=== PATIENT | male | born 1950 | race Caucasian/White ===

== ENCOUNTER 2018-06-14 10:30 | Inpatient (IN) | payer MEDICARE, OTHER ==
[~2018-06-14 10:30] MED LIST: ALBUMIN HUMAN 25% 100 ML INJ; ALBUMIN HUMAN 5% 250 ML INJ; BUPIVACAINE 0.5% (SDV) 30 ML INJ; CA CHLORIDE 10% 10 ML SYRINGE; CEFAZOLIN 1 GM INJ; NA BICARBONATE 8.4% 50 ML SYG
[2018-06-14] MEDS ORDERED: POLYMYXIN/BACITRACIN 1L IRRIG ×2 (13:38)
[2018-06-14] MEDS ORDERED: ROPIVACAINE 0.5 % 30 ML VIAL ×4 (13:39→13:53)
[2018-06-14] MEDS ORDERED: NEOMYC/POLYMYX/BACIT 3.5GM OPH OINT ×2 (13:41)
[2018-06-14] MEDS ORDERED: MIDAZOLAM 1 MG/ML 2 ML INJ ×2 (13:50)
[2018-06-14] MEDS ORDERED: FENTAnyl 50 MCG/ML VIAL ×2 (13:50)
[2018-06-14] MEDS ORDERED: METOCLOPRAMIDE 10 MG INJ ×2 (13:56)
[2018-06-14] MEDS ORDERED: DIPHENHYDRAMINE 25 MG CAP PO ×2 (14:00)
[2018-06-14] MEDS ORDERED: ONDANSETRON 4 MG INJ IV ×2 (14:00)
[2018-06-14] MEDS ORDERED: CEFAZOLIN 1 GM INJ IV ×2 (14:00)
[2018-06-14] MEDS: CEFAZOLIN 1 GM/50 ML (PMX) 50 ML IVPB ×4 (14:45→21:19)
[2018-06-14] MEDS: POLYMYXIN/BACITRACIN 1L IRRIG IRR ×2 (15:14)
[2018-06-14] MEDS ORDERED: NEOMYC/POLYMYX/BACIT 30 GM OINT ×2 (15:24)
[2018-06-14] MEDS ORDERED: LIDOCAINE 2% (SDV) 5 ML INJ ×2 (17:05)
[2018-06-14] MEDS ORDERED: HYDROmorphONE 2 MG/ML SYG ×2 (17:05)
[2018-06-14] MEDS ORDERED: ROCURONIUM 50 MG INJ ×2 (17:05)
[2018-06-14] MEDS ORDERED: PROPOFOL 20 ML ×2 (17:05)
[2018-06-14] MEDS ORDERED: SUCCINYLCHOLINE CHLORIDE 100 MG/5 ML SYG IV ×2 (17:05)
[2018-06-14] MEDS ORDERED: NEOSTIGMINE 3 MG/3 ML SYRINGE ×2 (19:21)
[2018-06-14] MEDS ORDERED: GLYCOPYRROLATE 0.4 MG INJ ×2 (19:21)
[2018-06-14] MEDS ORDERED: CA CHLORIDE 10% 10 ML SYRINGE ×2 (19:45)
[2018-06-14] MEDS ORDERED: LEVALBUTEROL (NEB) 1.25 MG/0.5 ML AMP ×2 (20:20)
[2018-06-14] MEDS ORDERED: ALBUTEROL 0.083% (NEB) 2.5 MG/3 ML AMP ×2 (20:20)
[2018-06-14] MEDS: POLYMYXIN/BACITRACIN 1L IRRIG ×2 (20:20)
[2018-06-14] MEDS: IPRATROPIUM (NEB) 0.5 MG/2.5 ML AMP HHN ×2 (20:54)
[2018-06-14] MEDS ORDERED: LEVALBUTEROL (NEB) 1.25 MG/0.5 ML AMP HHN ×2 (21:00)
[2018-06-14] MEDS ORDERED: ALBUMIN HUMAN 5% 250 ML IV ×2 (21:00)
[2018-06-14] MEDS ORDERED: FENTAnyl 50 MCG/ML VIAL IV ×4 (21:00)
[2018-06-14] MEDS ORDERED: MEPERIDINE 25 MG INJ IV ×2 (21:00)
[2018-06-14] MEDS ORDERED: HYDROmorphONE 1 MG/5 ML IV SYRINGE IV ×4 (21:00)
[2018-06-14] MEDS ORDERED: LABETALOL HCL 20MG INJ IV ×2 (21:00)
[2018-06-14] MEDS ORDERED: hydrALAzine 20 MG INJ IV ×2 (21:00)
[2018-06-14] MEDS ORDERED: DIPHENHYDRAMINE 50 MG INJ IV ×2 (21:00)
[2018-06-14 21:10] LABS: ADD MAN DIFF? NO
[2018-06-14] MEDS: HYDROmorphONE 1 MG/5 ML IV SYRINGE IV ×4 (21:10→21:27)
[2018-06-14] MEDS: ONDANSETRON 4 MG INJ IV ×2 (21:10)
[2018-06-14 21:11] LABS: BASOPHIL # 0.1 10^3/ul (0.0-0.1); BASOPHILS % 0.4 % (0.0-2.0); EOSINOPHILS # 0.1 10^3/ul (0.0-0.5); EOSINOPHILS % 0.8 % (0.0-7.0); HEMATOCRIT 36.2 % (42.0-52.0); HEMOGLOBIN 11.9 g/dl (14.0-18.0); LYMPHOCYTES # 2.2 10^3/ul (0.8-2.9); LYMPHOCYTES % 17.5 % (15.0-51.0); MEAN CORPUSCULAR HEMOGLOBIN 31.3 pg (29.0-33.0); MEAN CORPUSCULAR HGB CONC 32.9 g/dl (32.0-37.0); MEAN CORPUSCULAR VOLUME 95.3 fl (82.0-101.0); MEAN PLATELET VOLUME 9.5 fl (7.4-10.4); MONOCYTE # 0.7 10^3/ul (0.3-0.9); MONOCYTES % 5.8 % (0.0-11.0); NEUTROPHIL # 9.4 10^3/ul (1.6-7.5); PLATELET COUNT 245 10^3/UL (140-415); RED CELL DISTRIBUTION WIDTH 12.9 % (11.5-14.5)
[2018-06-14 21:11] LABS: WHITE BLOOD COUNT 12.5 10^3/ul (4.8-10.8)
[2018-06-14 21:28] LABS: ALANINE AMINOTRANSFERASE 39 IU/L (13-69); ALBUMIN 4.1 g/dl (3.3-4.9); ALBUMIN/GLOBULIN RATIO 1.64; ALKALINE PHOSPHATASE 66 IU/L (42-121); ANION GAP 8 (5-13); ASPARTATE AMINO TRANSFERASE 33 IU/L (15-46); BILIRUBIN,INDIRECT 0.8 mg/dl (0-1.1); BILIRUBIN,TOTAL 0.8 mg/dl (0.2-1.3); BLOOD UREA NITROGEN 18 mg/dl (7-20); CALCIUM 10.8 mg/dl (8.4-10.2); CARBON DIOXIDE 23 mmol/L (21-31); CHLORIDE 113 mmol/L (97-110); CREATININE 1.09 mg/dl (0.61-1.24); Estimated GFR > 60 mL/min (>60); GLUCOSE 124 mg/dl (70-220); POTASSIUM 4.8 mmol/L (3.5-5.1); SODIUM 144 mmol/L (135-144); TOTAL PROTEIN 6.6 g/dl (6.1-8.1)
[2018-06-14 21:37] LABS: INR 1.09; PROTIME 14.2 Sec (11.9-14.9); PT RATIO 1.1
[2018-06-14 21:39] LABS: TROPONIN-I 0.022 ng/ml (0.000-0.120)
[2018-06-14 21:58] LABS: HOLD TRANSMISSIONS 1
[2018-06-14 22:09] LABS: MAGNESIUM 1.6 mg/dl (1.7-2.5)
[2018-06-15] MEDS: morphine 4 MG/ML VIAL IV ×4 (04:24→07:51)
[2018-06-15] MEDS ORDERED: DEXTROSE 50% 50 ML SYRINGE IV ×4 (04:30)
[2018-06-15] MEDS ORDERED: GLUCAGON 1 MG INJ IM ×2 (04:30)
[2018-06-15] MEDS ORDERED: GLUCOSE GEL 15 GRAM TUBE PO ×4 (04:30)
[2018-06-15] MEDS ORDERED: GLUCOSE GEL 15 GRAM TUBE BUCCAL ×2 (04:30)
[2018-06-15] MEDS ORDERED: morphine 2 MG INJ IV ×2 (04:30)
[2018-06-15] MEDS ORDERED: ACETAMINOPHEN 325 MG TAB PO ×2 (04:30)
[2018-06-15] MEDS: CEFAZOLIN 1 GM/50 ML (PMX) 50 ML IVPB ×6 (06:01→21:17)
[2018-06-15 06:14] LABS: TROPONIN-I 0.013 ng/ml (0.000-0.120)
[2018-06-15] MEDS: INSULIN ASPART [NOVOLOG] 3 ML PEN SC ×8 (08:05→21:00)
[2018-06-15] MEDS: ATENOLOL 50 MG TAB PO ×2 (09:09)
[2018-06-15] MEDS: ASPIRIN 81 MG TAB PO ×2 (09:09)
[2018-06-15] MEDS: GABAPENTIN 300 MG CAP PO ×4 (13:05→21:12)
[2018-06-15] MEDS: oxyCODONE 5 MG TAB PO ×4 (15:42→21:12)
[2018-06-15] MEDS: RIVAROXABAN 10 MG TABLET PO ×2 (17:24)
[2018-06-15] MEDS: ATORVASTATIN 10 MG TAB PO ×2 (21:12)
[2018-06-16] MEDS: ACCU-CHEK XX ×2 (02:00)
[2018-06-16] MEDS: oxyCODONE 5 MG TAB PO ×4 (05:43→11:56)
[2018-06-16] MEDS: CEFAZOLIN 1 GM/50 ML (PMX) 50 ML IVPB ×2 (05:43)
[2018-06-16] MEDS: INSULIN ASPART [NOVOLOG] 3 ML PEN SC ×10 (07:49→20:48)
[2018-06-16] MEDS: ASPIRIN 81 MG TAB PO ×2 (08:06)
[2018-06-16] MEDS: GABAPENTIN 300 MG CAP PO ×4 (08:07→12:06)
[2018-06-16] MEDS: ATENOLOL 50 MG TAB PO ×2 (08:07)
[2018-06-16] MEDS: LISINOPRIL 5 MG TAB PO ×4 (11:56→20:36)
[2018-06-16] MEDS: traMADol 50 MG TAB PO ×4 (16:35→22:39)
[2018-06-16] MEDS: AMLODIPINE 10 MG TAB PO ×2 (16:35)
[2018-06-16] MEDS: RIVAROXABAN 10 MG TABLET PO ×2 (16:35)
[2018-06-16] MEDS: INSULIN GLARGINE [LANTus] (100 UNITS/ML) SYG SC ×2 (16:43)
[2018-06-16] MEDS: GABAPENTIN 100 MG CAP PO ×2 (20:31)
[2018-06-16] MEDS: ATORVASTATIN 10 MG TAB PO ×2 (20:31)
[2018-06-17] MEDS: ACCU-CHEK XX ×2 (03:05)
[2018-06-17] MEDS: INSULIN ASPART [NOVOLOG] 3 ML PEN SC ×14 (08:02→21:00)
[2018-06-17] MEDS: INSULIN GLARGINE [LANTus] (100 UNITS/ML) SYG SC ×2 (08:06)
[2018-06-17] MEDS: ATENOLOL 50 MG TAB PO ×2 (08:08)
[2018-06-17] MEDS: AMLODIPINE 10 MG TAB PO ×2 (08:08)
[2018-06-17] MEDS: GABAPENTIN 100 MG CAP PO ×6 (08:08→21:02)
[2018-06-17] MEDS: ASPIRIN 81 MG TAB PO ×2 (08:08)
[2018-06-17] MEDS: LISINOPRIL 5 MG TAB PO ×2 (08:09)
[2018-06-17] MEDS: traMADol 50 MG TAB PO ×4 (08:11→23:55)
[2018-06-17] MEDS: MAGNESIUM HYDROXIDE 30ML CUP PO ×4 (17:19→18:00)
[2018-06-17] MEDS: RIVAROXABAN 10 MG TABLET PO ×2 (17:20)
[2018-06-17] MEDS: BISACODYL (EC) 5 MG TAB PO ×2 (17:20)
[2018-06-17] MEDS ORDERED: MAGNESIUM HYDROXIDE 311 MG TAB PO ×2 (18:00)
[2018-06-17] MEDS: ATORVASTATIN 10 MG TAB PO ×2 (21:01)
[2018-06-17] MEDS: LISINOPRIL 20 MG TAB PO ×2 (21:02)
[2018-06-18] MEDS: HYDROmorphONE 1 MG/ML SYG IV ×2 (01:14)
[2018-06-18] MEDS: ACCU-CHEK XX ×2 (02:04)
[2018-06-18 05:35] LABS: ADD MAN DIFF? NO
[2018-06-18 06:00] LABS: WHITE BLOOD COUNT 12.6 10^3/ul (4.8-10.8)
[2018-06-18 06:00] LABS: ABNORMAL IP MESSAGE 1; BASOPHIL # 0.1 10^3/ul (0.0-0.1); BASOPHILS % 0.6 % (0.0-2.0); EOSINOPHILS # 0.3 10^3/ul (0.0-0.5); EOSINOPHILS % 2.1 % (0.0-7.0); HEMATOCRIT 45.4 % (42.0-52.0); HEMOGLOBIN 15.2 g/dl (14.0-18.0); LYMPHOCYTES # 3.3 10^3/ul (0.8-2.9); LYMPHOCYTES % 26.2 % (15.0-51.0); MEAN CORPUSCULAR HEMOGLOBIN 31.1 pg (29.0-33.0); MEAN CORPUSCULAR HGB CONC 33.5 g/dl (32.0-37.0); MONOCYTE # 1.6 10^3/ul (0.3-0.9); MONOCYTES % 12.4 % (0.0-11.0); NEUTROPHIL # 7.3 10^3/ul (1.6-7.5); PLATELET COUNT 288 10^3/UL (140-415); POSITIVE DIFF @See below; RED BLOOD COUNT 4.88 10^6/ul (4.70-6.10); RED CELL DISTRIBUTION WIDTH 12.2 % (11.5-14.5)
[2018-06-18 07:42] LABS: ALANINE AMINOTRANSFERASE 33 IU/L (13-69); ALBUMIN/GLOBULIN RATIO 1.05; ALKALINE PHOSPHATASE 110 IU/L (42-121); ANION GAP 10 (5-13); ASPARTATE AMINO TRANSFERASE 78 IU/L (15-46); BILIRUBIN,INDIRECT 0.7 mg/dl (0-1.1); BILIRUBIN,TOTAL 0.7 mg/dl (0.2-1.3); BLOOD UREA NITROGEN 21 mg/dl (7-20); CALCIUM 9.6 mg/dl (8.4-10.2); CARBON DIOXIDE 24 mmol/L (21-31); CHLORIDE 103 mmol/L (97-110); CREATININE 0.75 mg/dl (0.61-1.24); Estimated GFR > 60 mL/min (>60); GLUCOSE 137 mg/dl (70-220); POTASSIUM 4.1 mmol/L (3.5-5.1); SODIUM 137 mmol/L (135-144); TOTAL PROTEIN 7.8 g/dl (6.1-8.1)
[2018-06-18] MEDS: INSULIN ASPART [NOVOLOG] 3 ML PEN SC ×8 (08:12→12:22)
[2018-06-18] MEDS: INSULIN GLARGINE [LANTus] (100 UNITS/ML) SYG SC ×2 (08:12)
[2018-06-18] MEDS: ASPIRIN 81 MG TAB PO ×2 (08:16)
[2018-06-18] MEDS: traMADol 50 MG TAB PO ×2 (08:17)
[2018-06-18] MEDS: LISINOPRIL 20 MG TAB PO ×2 (08:17)
[2018-06-18] MEDS: ATENOLOL 50 MG TAB PO ×2 (08:18)
[2018-06-18] MEDS: AMLODIPINE 2.5 MG TAB PO ×2 (08:18)
[2018-06-18] MEDS: GABAPENTIN 100 MG CAP PO ×4 (08:19→12:28)
[2018-06-18] MEDS ORDERED: DOXAZOSIN 2 MG TAB PO ×2 (21:00)
[2018-06-18] MEDS ORDERED: LISINOPRIL 20 MG TAB PO ×2 (21:00)
== END 2018-06-18 15:05 | disposition home or self-care (01) | DRG 983 ==
LOC: SDS 10:30 → REC 13:58 → 6WM 20:45
PROVIDERS: Orthopaedic Surgery
PROC: 0SGH07Z Fusion of Right Tarsal Joint with Autologous Tissue Substitute, Open Approach (ICD-10-PCS; principal; 2018-06-14 13:00)
PROC: 0SGH07Z Fusion of Right Tarsal Joint with Autologous Tissue Substitute, Open Approach (ICD-10-PCS; 2018-06-14 13:00)
PROC: 0SGH07Z Fusion of Right Tarsal Joint with Autologous Tissue Substitute, Open Approach (ICD-10-PCS; 2018-06-14 13:00)
PROC: 0SGH0KZ Fusion of Right Tarsal Joint with Nonautologous Tissue Substitute, Open Approach (ICD-10-PCS; 2018-06-14 13:00)
PROC: 0SGH0KZ Fusion of Right Tarsal Joint with Nonautologous Tissue Substitute, Open Approach (ICD-10-PCS; 2018-06-14 13:00)
PROC: 0SGH0KZ Fusion of Right Tarsal Joint with Nonautologous Tissue Substitute, Open Approach (ICD-10-PCS; 2018-06-14 13:00)
DX: A52.16 Charcot's arthropathy (tabetic) (principal); S93.324A Dislocation of tarsometatarsal joint of right foot, initial encounter (principal); I10 Essential (primary) hypertension; E11.9 Type 2 diabetes mellitus without complications; E78.5 Hyperlipidemia, unspecified; Z79.82 Long term (current) use of aspirin; Z79.4 Long term (current) use of insulin; N40.0 Benign prostatic hyperplasia without lower urinary tract symptoms
CPT/HCPCS: 71045; 73630; 80053; 82306; 82962; 83735; 84484; 85025; 85610; 85730; 93005; 93306; 94664; 97110; 97116; 97161; 97530

== ENCOUNTER 2018-07-12 15:13 | Emergency (ER) | payer MEDICARE, OTHER | END 2018-07-12 16:47 | disposition left against medical advice (07) | LOC: E/R 16:47 | DX: Z53.21 Procedure and treatment not carried out due to patient leaving prior to being seen by health care provider (principal) ==

== ENCOUNTER 2018-07-12 16:09 | Inpatient (IN) | payer MEDICARE, OTHER ==
[2018-07-12 17:28] LABS: ADD MAN DIFF? NO
[2018-07-12 17:29] LABS: ABNORMAL IP MESSAGE 1; BASOPHIL # 0.1 10^3/ul (0.0-0.1); BASOPHILS % 0.5 % (0.0-2.0); EOSINOPHILS # 0.4 10^3/ul (0.0-0.5); EOSINOPHILS % 3.2 % (0.0-7.0); HEMATOCRIT 41.6 % (42.0-52.0); HEMOGLOBIN 13.9 g/dl (14.0-18.0); LYMPHOCYTES # 2.9 10^3/ul (0.8-2.9); LYMPHOCYTES % 23.7 % (15.0-51.0); MEAN CORPUSCULAR HEMOGLOBIN 30.6 pg (29.0-33.0); MEAN CORPUSCULAR HGB CONC 33.4 g/dl (32.0-37.0); MEAN CORPUSCULAR VOLUME 91.6 fl (82.0-101.0); MEAN PLATELET VOLUME 10.2 fl (7.4-10.4); MONOCYTE # 1.6 10^3/ul (0.3-0.9); MONOCYTES % 12.7 % (0.0-11.0); NEUTROPHIL # 7.4 10^3/ul (1.6-7.5); NEUTROPHILS % 59.5 % (39.0-77.0); PLATELET COUNT 350 10^3/UL (140-415); POSITIVE DIFF @See below; RED BLOOD COUNT 4.54 10^6/ul (4.70-6.10); RED CELL DISTRIBUTION WIDTH 12.5 % (11.5-14.5)
[2018-07-12 17:35] LABS: WHITE BLOOD COUNT 12.4 10^3/ul (4.8-10.8)
[2018-07-12 17:48] LABS: ANION GAP 12 (5-13); CALCIUM 10.2 mg/dl (8.4-10.2); CARBON DIOXIDE 24 mmol/L (21-31); CHLORIDE 102 mmol/L (97-110); CREATININE 1.21 mg/dl (0.61-1.24); Estimated GFR > 60 mL/min (>60); GLUCOSE 94 mg/dl (70-220); POTASSIUM 4.6 mmol/L (3.5-5.1); SODIUM 138 mmol/L (135-144)
[2018-07-12 17:49] LABS: INR 1.04; PROTIME 13.7 Sec (11.9-14.9); PT RATIO 1.1
[2018-07-12 17:53] LABS: PARTIAL THROMBOPLASTIN TIME 38.8 Sec (23.0-35.0)
[2018-07-12] MEDS ORDERED: BACITRACIN 50000 UNITS INJ (17:57)
[2018-07-12] MEDS ORDERED: POLYMYXIN B 500000 UNIT INJ (17:59)
[2018-07-12 18:11] LABS: BLOOD UREA NITROGEN 29 mg/dl (7-20)
[2018-07-12] MEDS ORDERED: POLYMYXIN/BACITRACIN 1L IRRIG (18:16)
[2018-07-12] MEDS ORDERED: ROPIVACAINE 0.5 % 30 ML VIAL (18:16)
[2018-07-12] MEDS ORDERED: BACITRACIN/POLYMYXIN 28.35 GM OINT TOP (18:17)
[2018-07-12] MEDS ORDERED: MEPERIDINE 25 MG INJ IV (18:30)
[2018-07-12] MEDS ORDERED: FENTAnyl 50 MCG/ML VIAL IV (18:30)
[2018-07-12] MEDS ORDERED: DIPHENHYDRAMINE 50 MG INJ IV (18:30)
[2018-07-12] MEDS ORDERED: ONDANSETRON 4 MG INJ IV ×3 (18:30→19:00)
[2018-07-12] MEDS ORDERED: PROCHLORPERAZINE 10 MG INJ IV (18:30)
[2018-07-12] MEDS ORDERED: HYDROmorphONE 1 MG/5 ML IV SYRINGE IV ×2 (18:30)
[2018-07-12] MEDS ORDERED: OXYCODONE/ACETAMINOPHEN (5/325) TAB PO (18:30)
[2018-07-12 18:34] LABS: C-REACTIVE PROTEIN 1.1 mg/dl (0.0-0.9)
[2018-07-12 18:35] LABS: HEMOGLOBIN A1C 7.7 % (0-5.9)
[2018-07-12] MEDS ORDERED: MIDAZOLAM 1 MG/ML 2 ML INJ (18:42)
[2018-07-12] MEDS ORDERED: PROPOFOL 20 ML (18:42)
[2018-07-12] MEDS ORDERED: LIDOCAINE 2% (SDV) 5 ML INJ (18:42)
[2018-07-12] MEDS ORDERED: FENTAnyl 50 MCG/ML VIAL (18:56)
[2018-07-12] MEDS ORDERED: DIPHENHYDRAMINE 25 MG CAP PO (19:00)
[2018-07-12] MEDS ORDERED: NACL 0.9% 3 ML SYG IV (19:00)
[2018-07-12] MEDS ORDERED: PHENYLephrine (100 MCG/ML) 5ML SYG (19:10)
[2018-07-12] MEDS ORDERED: VANCOMYCIN 1 GM (PMX) 250 ML (19:11)
[2018-07-12] MEDS ORDERED: VANCOMYCIN IV PER PHARMACY XX (19:30)
[2018-07-12 19:57] LABS: ALANINE AMINOTRANSFERASE 36 IU/L (13-69); ALBUMIN 4.5 g/dl (3.3-4.9); ALKALINE PHOSPHATASE 110 IU/L (42-121); ASPARTATE AMINO TRANSFERASE 52 IU/L (15-46); BILIRUBIN,INDIRECT 0.7 mg/dl (0-1.1); BILIRUBIN,TOTAL 0.7 mg/dl (0.2-1.3); CHOL/HDL RATIO 4.3 RATIO; HDL CHOLESTEROL 39 mg/dl (30-78); LDL CHOLESTEROL,CALCULATED 116 mg/dl; TRIGLYCERIDES 80 mg/dl (0-149)
[2018-07-12 19:57] LABS: CHOLESTEROL 171 mg/dl (100-200)
[2018-07-12] MEDS ORDERED: EPHEDrine SULFATE 50 MG/5 ML SYG (20:15)
[2018-07-12] MEDS ORDERED: VASOPRESSIN 20 UNITS INJ (20:28)
[2018-07-12] MEDS ORDERED: ALBUTEROL 0.083% (NEB) 2.5 MG/3 ML AMP (20:51)
[2018-07-12] MEDS: DOXAZOSIN 2 MG TAB PO (21:00)
[2018-07-12] MEDS ORDERED: ALBUTEROL 0.083% (NEB) 2.5 MG/3 ML AMP HHN (21:00)
[2018-07-12] MEDS ORDERED: NON-FORMULARY/PATIENT OWN MED (Pravastatin Sodium* 10 MG) PO (21:00)
[2018-07-12] MEDS: INSULIN ASPART [NOVOLOG] 3 ML PEN SC (21:00)
[2018-07-12] MEDS: HYDROmorphONE 1 MG/5 ML IV SYRINGE IV (21:34)
[2018-07-12] MEDS: oxyCODONE 5 MG TAB PO (22:32)
[2018-07-12] MEDS ORDERED: GLUCOSE GEL 15 GRAM TUBE BUCCAL (23:00)
[2018-07-12] MEDS ORDERED: GLUCAGON 1 MG INJ IM (23:00)
[2018-07-12] MEDS ORDERED: GLUCOSE GEL 15 GRAM TUBE PO ×2 (23:00)
[2018-07-12] MEDS ORDERED: DEXTROSE 50% 50 ML SYRINGE IV ×2 (23:00)
[2018-07-13] MEDS: ATORVASTATIN 10 MG TAB PO ×2 (00:31→21:24)
[2018-07-13] MEDS: traZODone 100 MG TAB PO ×2 (00:31→21:25)
[2018-07-13] MEDS: GABAPENTIN 100 MG CAP PO ×4 (00:31→21:25)
[2018-07-13] MEDS: ACCU-CHEK XX (02:00)
[2018-07-13] MEDS ORDERED: LORAZEPAM 2 MG INJ IV (04:00)
[2018-07-13 05:32] LABS: HEMATOCRIT 36.1 % (42.0-52.0); HEMOGLOBIN 12.3 g/dl (14.0-18.0); MEAN CORPUSCULAR HEMOGLOBIN 31.3 pg (29.0-33.0); MEAN CORPUSCULAR HGB CONC 34.1 g/dl (32.0-37.0); MEAN CORPUSCULAR VOLUME 91.9 fl (82.0-101.0); MEAN PLATELET VOLUME 10.2 fl (7.4-10.4); PLATELET COUNT 256 10^3/UL (140-415); RED BLOOD COUNT 3.93 10^6/ul (4.70-6.10); RED CELL DISTRIBUTION WIDTH 12.7 % (11.5-14.5)
[2018-07-13 05:38] LABS: ADD MAN DIFF? YES
[2018-07-13 05:52] LABS: ALANINE AMINOTRANSFERASE 30 IU/L (13-69); ALBUMIN 3.5 g/dl (3.3-4.9); ALBUMIN/GLOBULIN RATIO 1.25; ALKALINE PHOSPHATASE 82 IU/L (42-121); ANION GAP 8 (5-13); ASPARTATE AMINO TRANSFERASE 27 IU/L (15-46); BILIRUBIN,INDIRECT 0.7 mg/dl (0-1.1); BILIRUBIN,TOTAL 0.7 mg/dl (0.2-1.3); BLOOD UREA NITROGEN 24 mg/dl (7-20); CALCIUM 9.3 mg/dl (8.4-10.2); CARBON DIOXIDE 25 mmol/L (21-31); CHLORIDE 104 mmol/L (97-110); CREATININE 1.14 mg/dl (0.61-1.24); Estimated GFR > 60 mL/min (>60); GLUCOSE 164 mg/dl (70-220); MAGNESIUM 1.8 mg/dl (1.7-2.5); PHOSPHORUS 3.8 mg/dl (2.5-4.9); POTASSIUM 4.4 mmol/L (3.5-5.1); SODIUM 137 mmol/L (135-144); TOTAL PROTEIN 6.3 g/dl (6.1-8.1)
[2018-07-13] MEDS: VANCOMYCIN 1.25 GM in SOD CHLORIDE 0.9% 250 ML IVPB ×2 (05:55→18:14)
[2018-07-13 05:59] LABS: ETHANOL < 10.0 mg/dl (0-0)
[2018-07-13 06:59] LABS: HEMOGLOBIN A1C 7.5 % (0-5.9)
[2018-07-13] MEDS: INSULIN ASPART [NOVOLOG] 3 ML PEN SC ×4 (07:50→21:34)
[2018-07-13 08:09] LABS: EOSINOPHILS % (M) 7 % (0-7); LYMPHOCYTES #M 2.1 10^3/ul (0.8-2.9); LYMPHOCYTES % (M) 27 % (15-51); MONOCYTES % (M) 13 % (0-11); PLATELET ESTIMATE NORMAL; REACTIVE LYMPHOCYTES #M 0.1 10^3/ul (0.0-0.0); REACTIVE LYMPHOCYTES% (M) 2 % (0-0); SEGMENTED NEUTROPHILS (M) % 51 % (39-77); SMUDGE%M 2 % (0-0)
[2018-07-13] MEDS: CHOLECALCIFEROL 1,000 UNIT TAB PO (09:24)
[2018-07-13] MEDS: ATENOLOL 50 MG TAB PO (09:25)
[2018-07-13] MEDS: LISINOPRIL 20 MG TAB PO (09:25)
[2018-07-13] MEDS: INSULIN ASP PROT/ASPART (70/30) PEN SC ×3 (09:32→18:23)
[2018-07-13] MEDS: ASCORBIC ACID 500 MG TAB PO (09:58)
[2018-07-13] MEDS: MULTIVIT/CA CARB/B CMPLX/FA TAB PO (09:58)
[2018-07-13] MEDS: morphine 2 MG INJ IV (09:59)
[2018-07-13] MEDS: MULTIVITAMINS 10 ML, THIAMINE 100 MG, FOLIC ACID 1 MG in SOD CHLORIDE 0.9% 1,000 ML IVPB (12:42)
[2018-07-13] MEDS: CEFEPIME 1GM/50 ML (PMX) 50 ML IVPB ×2 (15:18→21:24)
[2018-07-13] MEDS ORDERED: RIVAROXABAN 10 MG TABLET PO (17:55)
[2018-07-13] MEDS: RIVAROXABAN 10 MG TABLET PO (18:14)
[2018-07-13] MEDS: DOXAZOSIN 2 MG TAB PO (21:24)
[2018-07-14] MEDS: ACCU-CHEK XX (02:00)
[2018-07-14] MEDS: VANCOMYCIN 1.25 GM in SOD CHLORIDE 0.9% 250 ML IVPB ×2 (05:39→18:34)
[2018-07-14] MEDS: ATENOLOL 50 MG TAB PO (08:46)
[2018-07-14] MEDS: GABAPENTIN 100 MG CAP PO ×3 (08:46→20:54)
[2018-07-14] MEDS: oxyCODONE 5 MG TAB PO ×6 (08:47→23:26)
[2018-07-14] MEDS: CHOLECALCIFEROL 1,000 UNIT TAB PO (08:47)
[2018-07-14] MEDS: LISINOPRIL 20 MG TAB PO (08:47)
[2018-07-14] MEDS: ASCORBIC ACID 500 MG TAB PO (08:47)
[2018-07-14] MEDS: INSULIN ASPART [NOVOLOG] 3 ML PEN SC ×4 (08:52→20:59)
[2018-07-14] MEDS: INSULIN ASP PROT/ASPART (70/30) PEN SC ×2 (08:56→17:42)
[2018-07-14] MEDS: CEFEPIME 1GM/50 ML (PMX) 50 ML IVPB ×2 (09:33→22:09)
[2018-07-14] MEDS: MULTIVIT/CA CARB/B CMPLX/FA TAB PO (09:33)
[2018-07-14] MEDS: LEVOFLOXACIN 750 MG TABLET PO (16:27)
[2018-07-14] MEDS: RIVAROXABAN 10 MG TABLET PO (17:47)
[2018-07-14 17:56] LABS: VANCOMYCIN,TROUGH 8.8 ug/ml (10.0-20.0)
[2018-07-14] MEDS: morphine 2 MG INJ IV (20:51)
[2018-07-14] MEDS: DOXAZOSIN 2 MG TAB PO (20:53)
[2018-07-14] MEDS: ATORVASTATIN 10 MG TAB PO (20:53)
[2018-07-14] MEDS: traZODone 100 MG TAB PO (20:59)
[2018-07-15] MEDS: ACCU-CHEK XX (01:00)
[2018-07-15] MEDS: VANCOMYCIN 1.5 GM in SOD CHLORIDE 0.9% 250 ML IVPB ×2 (04:14→16:28)
[2018-07-15 05:06] LABS: ADD MAN DIFF? NO
[2018-07-15 05:15] LABS: WHITE BLOOD COUNT 8.6 10^3/ul (4.8-10.8)
[2018-07-15 05:15] LABS: BASOPHIL # 0.1 10^3/ul (0.0-0.1); BASOPHILS % 0.8 % (0.0-2.0); EOSINOPHILS # 0.5 10^3/ul (0.0-0.5); EOSINOPHILS % 5.5 % (0.0-7.0); HEMATOCRIT 41.1 % (42.0-52.0); HEMOGLOBIN 13.7 g/dl (14.0-18.0); LYMPHOCYTES # 3.1 10^3/ul (0.8-2.9); LYMPHOCYTES % 35.7 % (15.0-51.0); MEAN CORPUSCULAR HEMOGLOBIN 30.6 pg (29.0-33.0); MEAN CORPUSCULAR HGB CONC 33.3 g/dl (32.0-37.0); MEAN CORPUSCULAR VOLUME 91.9 fl (82.0-101.0); MONOCYTES % 11.8 % (0.0-11.0); NEUTROPHIL # 3.9 10^3/ul (1.6-7.5); NEUTROPHILS % 45.9 % (39.0-77.0); PLATELET COUNT 274 10^3/UL (140-415); RED BLOOD COUNT 4.47 10^6/ul (4.70-6.10); RED CELL DISTRIBUTION WIDTH 12.5 % (11.5-14.5)
[2018-07-15] MEDS: LEVOFLOXACIN 750 MG TABLET PO (06:01)
[2018-07-15 06:08] LABS: ANION GAP 10 (5-13); BLOOD UREA NITROGEN 20 mg/dl (7-20); CALCIUM 9.9 mg/dl (8.4-10.2); CARBON DIOXIDE 28 mmol/L (21-31); CHLORIDE 101 mmol/L (97-110); CREATININE 0.85 mg/dl (0.61-1.24); Estimated GFR > 60 mL/min (>60); GLUCOSE 146 mg/dl (70-220); MAGNESIUM 1.7 mg/dl (1.7-2.5); PHOSPHORUS 3.6 mg/dl (2.5-4.9); POTASSIUM 4.5 mmol/L (3.5-5.1); SODIUM 139 mmol/L (135-144)
[2018-07-15] MEDS: ASCORBIC ACID 500 MG TAB PO (08:50)
[2018-07-15] MEDS: MULTIVIT/CA CARB/B CMPLX/FA TAB PO (08:50)
[2018-07-15] MEDS: CEFEPIME 1GM/50 ML (PMX) 50 ML IVPB ×2 (08:50→20:39)
[2018-07-15] MEDS: CHOLECALCIFEROL 1,000 UNIT TAB PO (08:51)
[2018-07-15] MEDS: GABAPENTIN 100 MG CAP PO ×3 (08:51→20:38)
[2018-07-15] MEDS: LISINOPRIL 20 MG TAB PO (08:51)
[2018-07-15] MEDS: ATENOLOL 50 MG TAB PO (08:51)
[2018-07-15] MEDS: INSULIN ASPART [NOVOLOG] 3 ML PEN SC ×4 (08:53→20:38)
[2018-07-15] MEDS: INSULIN ASP PROT/ASPART (70/30) PEN SC ×2 (08:53→17:49)
[2018-07-15] MEDS: oxyCODONE 5 MG TAB PO ×3 (12:41→22:23)
[2018-07-15] MEDS ORDERED: DOCUSATE SODIUM 100 MG CAP PO (14:30)
[2018-07-15] MEDS ORDERED: MAGNESIUM HYDROXIDE 30ML CUP PO (16:00)
[2018-07-15] MEDS: RIVAROXABAN 10 MG TABLET PO (17:54)
[2018-07-15] MEDS: ATORVASTATIN 10 MG TAB PO (20:37)
[2018-07-15] MEDS: traZODone 100 MG TAB PO (20:37)
[2018-07-15] MEDS: DOXAZOSIN 2 MG TAB PO (20:37)
[2018-07-15] MEDS: DOCUSATE SODIUM 100 MG CAP PO (20:38)
[2018-07-16] MEDS: ACCU-CHEK XX (01:21)
[2018-07-16] MEDS: VANCOMYCIN 1.5 GM in SOD CHLORIDE 0.9% 250 ML IVPB (04:22)
[2018-07-16] MEDS: LEVOFLOXACIN 750 MG TABLET PO (06:05)
[2018-07-16] MEDS: oxyCODONE 5 MG TAB PO ×3 (06:09→16:53)
[2018-07-16] MEDS: INSULIN ASPART [NOVOLOG] 3 ML PEN SC ×4 (07:50→21:00)
[2018-07-16] MEDS: INSULIN ASP PROT/ASPART (70/30) PEN SC ×2 (08:23→17:56)
[2018-07-16] MEDS: CHOLECALCIFEROL 1,000 UNIT TAB PO (08:25)
[2018-07-16] MEDS: ASCORBIC ACID 500 MG TAB PO (08:25)
[2018-07-16] MEDS: MULTIVIT/CA CARB/B CMPLX/FA TAB PO (08:25)
[2018-07-16] MEDS: DOCUSATE SODIUM 100 MG CAP PO ×2 (08:25→21:06)
[2018-07-16] MEDS: ATENOLOL 50 MG TAB PO (08:26)
[2018-07-16] MEDS: GABAPENTIN 100 MG CAP PO ×3 (08:26→21:06)
[2018-07-16] MEDS: LISINOPRIL 20 MG TAB PO (08:27)
[2018-07-16] MEDS: CEFEPIME 1GM/50 ML (PMX) 50 ML IVPB (09:49)
[2018-07-16 14:36] LABS: TRANSFERRIN 274 mg/dL (188-341)
[2018-07-16] MEDS: RIVAROXABAN 10 MG TABLET PO (18:01)
[2018-07-16] MEDS: ATORVASTATIN 10 MG TAB PO (21:06)
[2018-07-16] MEDS: DOXAZOSIN 2 MG TAB PO (21:06)
[2018-07-16] MEDS: traZODone 100 MG TAB PO (21:06)
[2018-07-16] MEDS: morphine LIQ (10 MG/5 ML) CUP PO (21:12)
[2018-07-17] MEDS: ACCU-CHEK XX (01:16)
[2018-07-17] MEDS: morphine LIQ (10 MG/5 ML) CUP PO (04:46)
[2018-07-17 05:12] LABS: ADD MAN DIFF? NO
[2018-07-17 05:17] LABS: WHITE BLOOD COUNT 8.8 10^3/ul (4.8-10.8)
[2018-07-17 05:17] LABS: BASOPHIL # 0.1 10^3/ul (0.0-0.1); BASOPHILS % 0.8 % (0.0-2.0); EOSINOPHILS # 0.4 10^3/ul (0.0-0.5); HEMATOCRIT 40.2 % (42.0-52.0); HEMOGLOBIN 13.7 g/dl (14.0-18.0); LYMPHOCYTES % 34.6 % (15.0-51.0); MEAN CORPUSCULAR HEMOGLOBIN 30.9 pg (29.0-33.0); MEAN CORPUSCULAR HGB CONC 34.1 g/dl (32.0-37.0); MEAN CORPUSCULAR VOLUME 90.7 fl (82.0-101.0); MEAN PLATELET VOLUME 10.1 fl (7.4-10.4); MONOCYTE # 0.9 10^3/ul (0.3-0.9); MONOCYTES % 10.5 % (0.0-11.0); NEUTROPHIL # 4.3 10^3/ul (1.6-7.5); NEUTROPHILS % 48.6 % (39.0-77.0); PLATELET COUNT 277 10^3/UL (140-415); RED BLOOD COUNT 4.43 10^6/ul (4.70-6.10); RED CELL DISTRIBUTION WIDTH 12.2 % (11.5-14.5)
[2018-07-17 05:42] LABS: ANION GAP 10 (5-13); BLOOD UREA NITROGEN 21 mg/dl (7-20); CALCIUM 9.7 mg/dl (8.4-10.2); CARBON DIOXIDE 27 mmol/L (21-31); CHLORIDE 104 mmol/L (97-110); CREATININE 0.91 mg/dl (0.61-1.24); Estimated GFR > 60 mL/min (>60); GLUCOSE 149 mg/dl (70-220); MAGNESIUM 1.7 mg/dl (1.7-2.5); PHOSPHORUS 4.1 mg/dl (2.5-4.9); POTASSIUM 4.2 mmol/L (3.5-5.1); SODIUM 141 mmol/L (135-144)
[2018-07-17] MEDS: LEVOFLOXACIN 750 MG TABLET PO (05:59)
[2018-07-17] MEDS: INSULIN ASP PROT/ASPART (70/30) PEN SC ×2 (08:45→17:25)
[2018-07-17] MEDS: INSULIN ASPART [NOVOLOG] 3 ML PEN SC ×4 (08:46→21:00)
[2018-07-17] MEDS: CHOLECALCIFEROL 1,000 UNIT TAB PO (08:47)
[2018-07-17] MEDS: GABAPENTIN 100 MG CAP PO ×3 (08:48→23:22)
[2018-07-17] MEDS: ASCORBIC ACID 500 MG TAB PO (08:48)
[2018-07-17] MEDS: LISINOPRIL 20 MG TAB PO (08:48)
[2018-07-17] MEDS: ATENOLOL 50 MG TAB PO (08:48)
[2018-07-17] MEDS: MULTIVIT/CA CARB/B CMPLX/FA TAB PO (08:48)
[2018-07-17] MEDS: DOCUSATE SODIUM 100 MG CAP PO ×2 (08:49→23:22)
[2018-07-17] MEDS: oxyCODONE 5 MG TAB PO ×4 (10:03→23:21)
[2018-07-17] MEDS ORDERED: PHENYLephrine (100 MCG/ML) 5ML SYG IV (13:07)
[2018-07-17] MEDS ORDERED: LIDOCAINE 1% (MPF) 5 ML VIAL INJ (13:07)
[2018-07-17] MEDS: SOD CHLORIDE 0.45% 1,000 ML IV (13:17)
[2018-07-17] MEDS: RIVAROXABAN 10 MG TABLET PO (15:16)
[2018-07-17] MEDS ORDERED: BACITRACIN 50000 UNITS INJ (18:12)
[2018-07-17] MEDS ORDERED: POLYMYXIN B 500000 UNIT INJ ×2 (18:14→19:32)
[2018-07-17] MEDS ORDERED: ONDANSETRON 4 MG INJ IV (19:00)
[2018-07-17] MEDS ORDERED: HYDROmorphONE 1 MG/5 ML IV SYRINGE IV ×2 (19:00)
[2018-07-17] MEDS ORDERED: MEPERIDINE 25 MG INJ IV (19:00)
[2018-07-17] MEDS ORDERED: EPHEDrine SULFATE 50 MG/5 ML SYG IV (19:00)
[2018-07-17] MEDS ORDERED: hydrALAzine 20 MG INJ IV (19:00)
[2018-07-17] MEDS ORDERED: LABETALOL HCL 20MG INJ IV (19:00)
[2018-07-17] MEDS ORDERED: DIPHENHYDRAMINE 50 MG INJ IV (19:00)
[2018-07-17] MEDS ORDERED: ONDANSETRON 4 MG INJ (19:08)
[2018-07-17] MEDS ORDERED: FENTAnyl 50 MCG/ML VIAL (19:08)
[2018-07-17] MEDS ORDERED: PROPOFOL 20 ML (19:08)
[2018-07-17] MEDS ORDERED: METOCLOPRAMIDE 10 MG INJ (19:09)
[2018-07-17] MEDS ORDERED: CEFAZOLIN 1 GM INJ (20:40)
[2018-07-17] MEDS ORDERED: EPHEDrine 50 MG INJ (20:41)
[2018-07-17] MEDS: POLYMYXIN/BACITRACIN 1L IRRIG IRR (21:21)
[2018-07-17] MEDS: HYDROmorphONE 1 MG/5 ML IV SYRINGE IV (22:32)
[2018-07-17] MEDS: ATORVASTATIN 10 MG TAB PO (23:21)
[2018-07-17] MEDS: traZODone 100 MG TAB PO (23:22)
[2018-07-17] MEDS: DOXAZOSIN 2 MG TAB PO (23:22)
[2018-07-18] MEDS: ACCU-CHEK XX (01:01)
[2018-07-18] MEDS: LEVOFLOXACIN 750 MG TABLET PO (05:30)
[2018-07-18] MEDS: INSULIN ASP PROT/ASPART (70/30) PEN SC ×2 (08:46→17:51)
[2018-07-18] MEDS: INSULIN ASPART [NOVOLOG] 3 ML PEN SC ×4 (08:47→20:36)
[2018-07-18] MEDS: GABAPENTIN 100 MG CAP PO ×3 (08:50→20:37)
[2018-07-18] MEDS: ASCORBIC ACID 500 MG TAB PO (08:50)
[2018-07-18] MEDS: DOCUSATE SODIUM 100 MG CAP PO ×2 (08:50→20:37)
[2018-07-18] MEDS: CHOLECALCIFEROL 1,000 UNIT TAB PO (08:50)
[2018-07-18] MEDS: ATENOLOL 50 MG TAB PO (08:54)
[2018-07-18] MEDS: LISINOPRIL 20 MG TAB PO (08:55)
[2018-07-18] MEDS: MULTIVIT/CA CARB/B CMPLX/FA TAB PO (09:00)
[2018-07-18] MEDS: oxyCODONE 5 MG TAB PO ×4 (09:28→20:37)
[2018-07-18 12:22] LABS: ADD MAN DIFF? NO
[2018-07-18 12:30] LABS: BASOPHIL # 0.1 10^3/ul (0.0-0.1); BASOPHILS % 0.7 % (0.0-2.0); EOSINOPHILS # 0.2 10^3/ul (0.0-0.5); EOSINOPHILS % 2.6 % (0.0-7.0); HEMATOCRIT 39.1 % (42.0-52.0); HEMOGLOBIN 13.1 g/dl (14.0-18.0); LYMPHOCYTES # 2.3 10^3/ul (0.8-2.9); MEAN CORPUSCULAR HEMOGLOBIN 30.5 pg (29.0-33.0); MEAN CORPUSCULAR HGB CONC 33.5 g/dl (32.0-37.0); MEAN CORPUSCULAR VOLUME 90.9 fl (82.0-101.0); MEAN PLATELET VOLUME 10.2 fl (7.4-10.4); MONOCYTE # 0.9 10^3/ul (0.3-0.9); MONOCYTES % 10.9 % (0.0-11.0); NEUTROPHILS % 58.4 % (39.0-77.0); PLATELET COUNT 280 10^3/UL (140-415); RED CELL DISTRIBUTION WIDTH 12.1 % (11.5-14.5)
[2018-07-18 12:30] LABS: WHITE BLOOD COUNT 8.6 10^3/ul (4.8-10.8)
[2018-07-18 12:42] LABS: ANION GAP 10 (5-13); BLOOD UREA NITROGEN 18 mg/dl (7-20); CALCIUM 9.5 mg/dl (8.4-10.2); CARBON DIOXIDE 27 mmol/L (21-31); CHLORIDE 103 mmol/L (97-110); CREATININE 0.83 mg/dl (0.61-1.24); Estimated GFR > 60 mL/min (>60); GLUCOSE 183 mg/dl (70-220); POTASSIUM 4.2 mmol/L (3.5-5.1); SODIUM 140 mmol/L (135-144)
[2018-07-18] MEDS: RIVAROXABAN 10 MG TABLET PO (17:43)
[2018-07-18] MEDS: ATORVASTATIN 10 MG TAB PO (20:37)
[2018-07-18] MEDS: traZODone 100 MG TAB PO (20:37)
[2018-07-18] MEDS: DOXAZOSIN 2 MG TAB PO (20:37)
[2018-07-19] MEDS: morphine LIQ (10 MG/5 ML) CUP PO ×3 (00:17→21:41)
[2018-07-19] MEDS: ACCU-CHEK XX ×2 (01:41→22:28)
[2018-07-19] MEDS: oxyCODONE 5 MG TAB PO ×4 (04:05→17:45)
[2018-07-19 05:30] LABS: ADD MAN DIFF? NO
[2018-07-19 05:36] LABS: BASOPHIL # 0.1 10^3/ul (0.0-0.1); BASOPHILS % 0.7 % (0.0-2.0); EOSINOPHILS # 0.4 10^3/ul (0.0-0.5); EOSINOPHILS % 4.4 % (0.0-7.0); HEMATOCRIT 36.9 % (42.0-52.0); HEMOGLOBIN 12.4 g/dl (14.0-18.0); LYMPHOCYTES % 36.8 % (15.0-51.0); MEAN CORPUSCULAR HEMOGLOBIN 30.5 pg (29.0-33.0); MEAN CORPUSCULAR HGB CONC 33.6 g/dl (32.0-37.0); MEAN CORPUSCULAR VOLUME 90.9 fl (82.0-101.0); MEAN PLATELET VOLUME 10.4 fl (7.4-10.4); MONOCYTE # 0.9 10^3/ul (0.3-0.9); MONOCYTES % 11.3 % (0.0-11.0); NEUTROPHIL # 3.8 10^3/ul (1.6-7.5); NEUTROPHILS % 46.4 % (39.0-77.0); PLATELET COUNT 263 10^3/UL (140-415); RED BLOOD COUNT 4.06 10^6/ul (4.70-6.10); RED CELL DISTRIBUTION WIDTH 11.9 % (11.5-14.5)
[2018-07-19 05:36] LABS: WHITE BLOOD COUNT 8.3 10^3/ul (4.8-10.8)
[2018-07-19] MEDS: LEVOFLOXACIN 750 MG TABLET PO (05:44)
[2018-07-19 06:08] LABS: ANION GAP 8 (5-13); BLOOD UREA NITROGEN 25 mg/dl (7-20); CALCIUM 9.1 mg/dl (8.4-10.2); CARBON DIOXIDE 28 mmol/L (21-31); CHLORIDE 103 mmol/L (97-110); CREATININE 0.91 mg/dl (0.61-1.24); Estimated GFR > 60 mL/min (>60); GLUCOSE 217 mg/dl (70-220); MAGNESIUM 1.8 mg/dl (1.7-2.5); PHOSPHORUS 3.7 mg/dl (2.5-4.9); POTASSIUM 3.9 mmol/L (3.5-5.1); SODIUM 139 mmol/L (135-144)
[2018-07-19] MEDS: INSULIN ASPART [NOVOLOG] 3 ML PEN SC ×4 (07:50→21:00)
[2018-07-19] MEDS: DOCUSATE SODIUM 100 MG CAP PO ×2 (08:39→20:27)
[2018-07-19] MEDS: CHOLECALCIFEROL 1,000 UNIT TAB PO (08:39)
[2018-07-19] MEDS: GABAPENTIN 100 MG CAP PO ×3 (08:39→20:27)
[2018-07-19] MEDS: MULTIVIT/CA CARB/B CMPLX/FA TAB PO (08:40)
[2018-07-19] MEDS: ASCORBIC ACID 500 MG TAB PO (08:40)
[2018-07-19] MEDS: LISINOPRIL 20 MG TAB PO (08:40)
[2018-07-19] MEDS: ATENOLOL 50 MG TAB PO (08:40)
[2018-07-19] MEDS: INSULIN ASP PROT/ASPART (70/30) PEN SC ×2 (09:10→17:49)
[2018-07-19] MEDS ORDERED: LORAZEPAM 4 MG/ML VIAL IV (16:00)
[2018-07-19] MEDS: RIVAROXABAN 10 MG TABLET PO (17:45)
[2018-07-19] MEDS: ATORVASTATIN 10 MG TAB PO (20:27)
[2018-07-19] MEDS: DOXAZOSIN 2 MG TAB PO (20:27)
[2018-07-19] MEDS: traZODone 100 MG TAB PO (20:27)
[2018-07-20] MEDS: morphine LIQ (10 MG/5 ML) CUP PO (05:36)
[2018-07-20] MEDS: LEVOFLOXACIN 750 MG TABLET PO (05:36)
[2018-07-20] MEDS: GABAPENTIN 100 MG CAP PO ×2 (08:36→13:33)
[2018-07-20] MEDS: CHOLECALCIFEROL 1,000 UNIT TAB PO (08:37)
[2018-07-20] MEDS: ASCORBIC ACID 500 MG TAB PO (08:38)
[2018-07-20] MEDS: ATENOLOL 50 MG TAB PO (08:38)
[2018-07-20] MEDS: DOCUSATE SODIUM 100 MG CAP PO (08:38)
[2018-07-20] MEDS: LISINOPRIL 20 MG TAB PO (08:38)
[2018-07-20] MEDS: INSULIN ASP PROT/ASPART (70/30) PEN SC ×2 (08:44→18:31)
[2018-07-20] MEDS: INSULIN ASPART [NOVOLOG] 3 ML PEN SC ×3 (08:44→18:31)
[2018-07-20] MEDS: MULTIVIT/CA CARB/B CMPLX/FA TAB PO (10:50)
[2018-07-20] MEDS: oxyCODONE 5 MG TAB PO ×2 (10:53→17:04)
[2018-07-20] MEDS: RIVAROXABAN 10 MG TABLET PO (18:24)
== END 2018-07-20 18:50 | disposition home health service (06) | DRG 904 ==
LOC: SDS 16:09 → REC 19:53 → MS1 21:45
PROC: 0HRMXK3 Replacement of Right Foot Skin with Nonautologous Tissue Substitute, Full Thickness, External Approach (ICD-10-PCS; principal; 2018-07-12 17:46)
PROC: 0QDN0ZZ Extraction of Right Metatarsal, Open Approach (ICD-10-PCS; 2018-07-12 17:46)
PROC: 0QDN0ZZ Extraction of Right Metatarsal, Open Approach (ICD-10-PCS; 2018-07-12 17:46)
PROC: 0HRMXK3 Replacement of Right Foot Skin with Nonautologous Tissue Substitute, Full Thickness, External Approach (ICD-10-PCS; 2018-07-12 17:46)
PROC: 2W1SX6Z Compression of Right Foot using Pressure Dressing (ICD-10-PCS; 2018-07-12 17:46)
DX: T81.31XA Disruption of external operation (surgical) wound, not elsewhere classified, initial encounter (principal); T84.038A Mechanical loosening of other internal prosthetic joint, initial encounter; T84.89XA Other specified complication of internal orthopedic prosthetic devices, implants and grafts, initial encounter; E11.610 Type 2 diabetes mellitus with diabetic neuropathic arthropathy; I10 Essential (primary) hypertension; E78.5 Hyperlipidemia, unspecified; F32.9 Major depressive disorder, single episode, unspecified; F41.9 Anxiety disorder, unspecified; M24.674 Ankylosis, right foot; F10.20 Alcohol dependence, uncomplicated; Y90.0 Blood alcohol level of less than 20 mg/100 ml; Z79.4 Long term (current) use of insulin
CPT/HCPCS: 73630; 80048; 80053; 80061; 80076; 80202; 80307; 82306; 82962; 83036; 83735; 84100; 84134; 84466; 85025; 85610; 85730; 86140; 87040; 87070; 87075; 87102; 88304; 94664; 97116; 97161; 97530

== ENCOUNTER 2018-09-26 11:58 | Inpatient (IN) | payer MEDICARE, OTHER ==
[2018-09-26] MEDS ORDERED: LIDOCAINE 1%/EPI (1:100,000) (MDV) 20 ML (13:22)
[2018-09-26] MEDS ORDERED: BACITRACIN/POLYMYXIN 28.35 GM OINT TOP (13:23)
[2018-09-26] MEDS ORDERED: HYDROmorphONE 1 MG/5 ML IV SYRINGE IV ×2 (13:30)
[2018-09-26] MEDS ORDERED: MEPERIDINE 25 MG INJ IV (13:30)
[2018-09-26] MEDS ORDERED: DIPHENHYDRAMINE 50 MG INJ IV (13:30)
[2018-09-26] MEDS ORDERED: FENTAnyl 50 MCG/ML VIAL IV ×3 (13:30)
[2018-09-26] MEDS ORDERED: ALBUTEROL 0.083% (NEB) 2.5 MG/3 ML AMP HHN (13:30)
[2018-09-26] MEDS ORDERED: METOCLOPRAMIDE 10 MG INJ IV (13:30)
[2018-09-26] MEDS ORDERED: ONDANSETRON 4 MG INJ IV (13:30)
[2018-09-26] MEDS ORDERED: FENTAnyl 50 MCG/ML VIAL (13:39)
[2018-09-26] MEDS ORDERED: LIDOCAINE 2% (SDV) 5 ML INJ (13:50)
[2018-09-26] MEDS ORDERED: CEFAZOLIN 1 GM INJ (13:53)
[2018-09-26] MEDS ORDERED: SUCCINYLCHOLINE CHLORIDE 100 MG/5 ML SYG IV (13:53)
[2018-09-26] MEDS ORDERED: ROCURONIUM 50 MG INJ (13:53)
[2018-09-26] MEDS ORDERED: PROPOFOL 20 ML (13:53)
[2018-09-26] MEDS ORDERED: SUGAMMADEX SODIUM 200 MG/2 ML VIAL IV (14:05)
[2018-09-26] MEDS: POLYMYXIN B 500000 UNIT INJ (14:22)
[2018-09-26] MEDS: POLYMYXIN/BACITRACIN 1L IRRIG IRR (14:22)
[2018-09-26] MEDS: BACITRACIN 50000 UNITS INJ (14:22)
[2018-09-26] MEDS ORDERED: LORAZEPAM 2 MG INJ IV (15:30)
[2018-09-26] MEDS ORDERED: CEFAZOLIN 1 GM INJ IV (15:30)
[2018-09-26] MEDS ORDERED: DIPHENHYDRAMINE 25 MG CAP PO (15:30)
[2018-09-26] MEDS: HYDROmorphONE 1 MG/5 ML IV SYRINGE IV (16:01)
[2018-09-26] MEDS ORDERED: GLUCOSE GEL 15 GRAM TUBE PO ×2 (16:30)
[2018-09-26] MEDS ORDERED: GLUCAGON 1 MG INJ IM (16:30)
[2018-09-26] MEDS ORDERED: DEXTROSE 50% 50 ML SYRINGE IV ×2 (16:30)
[2018-09-26] MEDS ORDERED: GLUCOSE GEL 15 GRAM TUBE BUCCAL (16:30)
[2018-09-26] MEDS: INSULIN ASPART [NOVOLOG] 3 ML PEN SC ×2 (18:47→21:09)
[2018-09-26] MEDS: morphine 10 MG INJ IV (19:44)
[2018-09-26] MEDS ORDERED: INSULIN ISOPHANE SC (21:00)
[2018-09-26] MEDS ORDERED: NON-FORMULARY/PATIENT OWN MED (Pravastatin Sodium* 10 MG) PO (21:00)
[2018-09-26] MEDS: ATORVASTATIN 10 MG TAB PO (21:00)
[2018-09-26] MEDS: MULTIVITAMINS 10 ML, THIAMINE 100 MG, FOLIC ACID 1 MG in SOD CHLORIDE 0.9% 1,000 ML IVPB (21:03)
[2018-09-26] MEDS: CEFAZOLIN 2 GM/50 ML (PMX) 50 ML IVPB (21:53)
[2018-09-27] MEDS: ACCU-CHEK XX (02:00)
[2018-09-27 05:23] LABS: ADD MAN DIFF? NO
[2018-09-27 05:26] LABS: WHITE BLOOD COUNT 8.8 10^3/ul (4.8-10.8)
[2018-09-27 05:26] LABS: BASOPHIL # 0.1 10^3/ul (0.0-0.1); BASOPHILS % 0.6 % (0.0-2.0); EOSINOPHILS # 0.3 10^3/ul (0.0-0.5); EOSINOPHILS % 2.8 % (0.0-7.0); HEMATOCRIT 37.2 % (42.0-52.0); HEMOGLOBIN 12.1 g/dl (14.0-18.0); LYMPHOCYTES # 2.9 10^3/ul (0.8-2.9); LYMPHOCYTES % 32.3 % (15.0-51.0); MEAN CORPUSCULAR HEMOGLOBIN 30.1 pg (29.0-33.0); MEAN CORPUSCULAR HGB CONC 32.5 g/dl (32.0-37.0); MEAN CORPUSCULAR VOLUME 92.5 fl (82.0-101.0); MEAN PLATELET VOLUME 10.5 fl (7.4-10.4); MONOCYTE # 1.1 10^3/ul (0.3-0.9); MONOCYTES % 12.6 % (0.0-11.0); NEUTROPHIL # 4.5 10^3/ul (1.6-7.5); NEUTROPHILS % 51.2 % (39.0-77.0); PLATELET COUNT 258 10^3/UL (140-415); RED BLOOD COUNT 4.02 10^6/ul (4.70-6.10)
[2018-09-27] MEDS: CEFAZOLIN 2 GM/50 ML (PMX) 50 ML IVPB ×3 (05:43→21:24)
[2018-09-27] MEDS: morphine 10 MG INJ IV ×3 (05:43→23:22)
[2018-09-27 05:48] LABS: ANION GAP 7 (5-13); BLOOD UREA NITROGEN 14 mg/dl (7-20); CALCIUM 8.8 mg/dl (8.4-10.2); CARBON DIOXIDE 26 mmol/L (21-31); CHLORIDE 107 mmol/L (97-110); CREATININE 0.91 mg/dl (0.61-1.24); Estimated GFR > 60 mL/min (>60); GLUCOSE 134 mg/dl (70-220); MAGNESIUM 1.8 mg/dl (1.7-2.5); PHOSPHORUS 3.5 mg/dl (2.5-4.9); SODIUM 140 mmol/L (135-144)
[2018-09-27] MEDS: MULTIVITAMINS 10 ML, THIAMINE 100 MG, FOLIC ACID 1 MG in SOD CHLORIDE 0.9% 1,000 ML IVPB (08:58)
[2018-09-27] MEDS: AMLODIPINE 10 MG TAB PO (08:58)
[2018-09-27] MEDS: ATENOLOL 50 MG TAB PO (08:58)
[2018-09-27] MEDS: INSULIN ASPART [NOVOLOG] 3 ML PEN SC ×4 (08:59→21:36)
[2018-09-27] MEDS: INSULIN ASP PROT/ASPART (70/30) PEN SC ×2 (09:57→21:37)
[2018-09-27] MEDS: HYDROCODONE/APAP (5/325) TAB PO (18:34)
[2018-09-27] MEDS: ATORVASTATIN 10 MG TAB PO (21:19)
[2018-09-28] MEDS: ACCU-CHEK XX (02:00)
[2018-09-28] MEDS: HYDROCODONE/APAP (5/325) TAB PO ×4 (02:31→22:29)
[2018-09-28 05:05] LABS: ADD MAN DIFF? NO
[2018-09-28 05:09] LABS: BASOPHIL # 0.1 10^3/ul (0.0-0.1); BASOPHILS % 0.6 % (0.0-2.0); EOSINOPHILS # 0.4 10^3/ul (0.0-0.5); EOSINOPHILS % 3.6 % (0.0-7.0); HEMOGLOBIN 13.9 g/dl (14.0-18.0); LYMPHOCYTES # 3.3 10^3/ul (0.8-2.9); LYMPHOCYTES % 33.8 % (15.0-51.0); MEAN CORPUSCULAR HEMOGLOBIN 30.3 pg (29.0-33.0); MEAN CORPUSCULAR HGB CONC 33.9 g/dl (32.0-37.0); MEAN CORPUSCULAR VOLUME 89.3 fl (82.0-101.0); MEAN PLATELET VOLUME 10.1 fl (7.4-10.4); MONOCYTE # 1.1 10^3/ul (0.3-0.9); MONOCYTES % 11.7 % (0.0-11.0); NEUTROPHIL # 4.9 10^3/ul (1.6-7.5); PLATELET COUNT 289 10^3/UL (140-415); RED BLOOD COUNT 4.59 10^6/ul (4.70-6.10); RED CELL DISTRIBUTION WIDTH 12.9 % (11.5-14.5)
[2018-09-28 05:09] LABS: WHITE BLOOD COUNT 9.7 10^3/ul (4.8-10.8)
[2018-09-28] MEDS: CEFAZOLIN 2 GM/50 ML (PMX) 50 ML IVPB ×2 (05:21→14:14)
[2018-09-28 05:36] LABS: ANION GAP 9 (5-13); BLOOD UREA NITROGEN 16 mg/dl (7-20); CALCIUM 9.5 mg/dl (8.4-10.2); CARBON DIOXIDE 29 mmol/L (21-31); CHLORIDE 103 mmol/L (97-110); CREATININE 1.04 mg/dl (0.61-1.24); Estimated GFR > 60 mL/min (>60); GLUCOSE 94 mg/dl (70-220); POTASSIUM 3.8 mmol/L (3.5-5.1); SODIUM 141 mmol/L (135-144)
[2018-09-28] MEDS: INSULIN ASPART [NOVOLOG] 3 ML PEN SC ×4 (07:50→21:15)
[2018-09-28] MEDS: MULTIVITAMINS 10 ML, THIAMINE 100 MG, FOLIC ACID 1 MG in SOD CHLORIDE 0.9% 1,000 ML IVPB (08:28)
[2018-09-28] MEDS: INSULIN ASP PROT/ASPART (70/30) PEN SC ×2 (08:34→21:17)
[2018-09-28] MEDS: AMLODIPINE 10 MG TAB PO (08:41)
[2018-09-28] MEDS: ATENOLOL 50 MG TAB PO (08:42)
[2018-09-28] MEDS: DOCUSATE SODIUM 100 MG CAP PO ×2 (13:03→21:10)
[2018-09-28] MEDS: CIPROFLOXACIN 400MG/D5W 200 ML IVPB ×2 (13:03→21:10)
[2018-09-28] MEDS: morphine 10 MG INJ IV ×2 (19:28→23:34)
[2018-09-28] MEDS: ATORVASTATIN 10 MG TAB PO (21:10)
[2018-09-29] MEDS: ACCU-CHEK XX (02:00)
[2018-09-29] MEDS: morphine 10 MG INJ IV ×4 (04:55→18:01)
[2018-09-29 05:31] LABS: ADD MAN DIFF? NO
[2018-09-29 05:40] LABS: BASOPHIL # 0.1 10^3/ul (0.0-0.1); BASOPHILS % 0.7 % (0.0-2.0); EOSINOPHILS # 0.4 10^3/ul (0.0-0.5); EOSINOPHILS % 3.3 % (0.0-7.0); HEMATOCRIT 47.8 % (42.0-52.0); LYMPHOCYTES # 3.4 10^3/ul (0.8-2.9); LYMPHOCYTES % 31.3 % (15.0-51.0); MEAN CORPUSCULAR HGB CONC 33.5 g/dl (32.0-37.0); MEAN CORPUSCULAR VOLUME 89.5 fl (82.0-101.0); MEAN PLATELET VOLUME 10.2 fl (7.4-10.4); MONOCYTE # 1.3 10^3/ul (0.3-0.9); MONOCYTES % 12.3 % (0.0-11.0); NEUTROPHIL # 5.7 10^3/ul (1.6-7.5); NEUTROPHILS % 51.9 % (39.0-77.0); PLATELET COUNT 328 10^3/UL (140-415); RED BLOOD COUNT 5.34 10^6/ul (4.70-6.10); RED CELL DISTRIBUTION WIDTH 12.6 % (11.5-14.5)
[2018-09-29 05:40] LABS: WHITE BLOOD COUNT 10.9 10^3/ul (4.8-10.8)
[2018-09-29 06:06] LABS: ANION GAP 10 (5-13); BLOOD UREA NITROGEN 20 mg/dl (7-20); CALCIUM 10.1 mg/dl (8.4-10.2); CARBON DIOXIDE 28 mmol/L (21-31); CHLORIDE 103 mmol/L (97-110); CREATININE 1.02 mg/dl (0.61-1.24); Estimated GFR > 60 mL/min (>60); GLUCOSE 111 mg/dl (70-220); POTASSIUM 4.2 mmol/L (3.5-5.1); SODIUM 141 mmol/L (135-144)
[2018-09-29] MEDS: CIPROFLOXACIN 400MG/D5W 200 ML IVPB ×2 (08:59→20:53)
[2018-09-29] MEDS: AMLODIPINE 10 MG TAB PO (09:00)
[2018-09-29] MEDS: ATENOLOL 50 MG TAB PO (09:00)
[2018-09-29] MEDS: DOCUSATE SODIUM 100 MG CAP PO ×2 (09:01→20:54)
[2018-09-29] MEDS: INSULIN ASP PROT/ASPART (70/30) PEN SC ×2 (09:04→21:02)
[2018-09-29] MEDS: INSULIN ASPART [NOVOLOG] 3 ML PEN SC ×4 (09:04→21:00)
[2018-09-29] MEDS: HYDROCODONE/APAP (5/325) TAB PO ×2 (09:31→16:39)
[2018-09-29] MEDS: MULTIVITAMINS 10 ML, THIAMINE 100 MG, FOLIC ACID 1 MG in SOD CHLORIDE 0.9% 1,000 ML IVPB (09:31)
[2018-09-29] MEDS: hydrALAzine 20 MG INJ IV (19:11)
[2018-09-29] MEDS: ATORVASTATIN 10 MG TAB PO (20:54)
[2018-09-29] MEDS: ONDANSETRON 4 MG INJ IV (21:21)
[2018-09-30] MEDS: ACCU-CHEK XX (02:13)
[2018-09-30 05:15] LABS: ADD MAN DIFF? NO
[2018-09-30] MEDS: PANTOPRAZOLE 40 MG INJ IV (05:15)
[2018-09-30 05:20] LABS: BASOPHIL # 0.1 10^3/ul (0.0-0.1); BASOPHILS % 0.7 % (0.0-2.0); EOSINOPHILS # 0.2 10^3/ul (0.0-0.5); EOSINOPHILS % 1.5 % (0.0-7.0); HEMATOCRIT 48.5 % (42.0-52.0); HEMOGLOBIN 16.7 g/dl (14.0-18.0); LYMPHOCYTES % 22.5 % (15.0-51.0); MEAN CORPUSCULAR HEMOGLOBIN 30.2 pg (29.0-33.0); MEAN CORPUSCULAR HGB CONC 34.4 g/dl (32.0-37.0); MEAN CORPUSCULAR VOLUME 87.7 fl (82.0-101.0); MEAN PLATELET VOLUME 10.2 fl (7.4-10.4); MONOCYTE # 1.5 10^3/ul (0.3-0.9); MONOCYTES % 10.9 % (0.0-11.0); NEUTROPHIL # 8.5 10^3/ul (1.6-7.5); PLATELET COUNT 357 10^3/UL (140-415); RED BLOOD COUNT 5.53 10^6/ul (4.70-6.10); RED CELL DISTRIBUTION WIDTH 12.8 % (11.5-14.5)
[2018-09-30 05:20] LABS: WHITE BLOOD COUNT 13.4 10^3/ul (4.8-10.8)
[2018-09-30 05:50] LABS: ANION GAP 12 (5-13); BLOOD UREA NITROGEN 16 mg/dl (7-20); CALCIUM 10.3 mg/dl (8.4-10.2); CARBON DIOXIDE 25 mmol/L (21-31); CHLORIDE 103 mmol/L (97-110); Estimated GFR > 60 mL/min (>60); GLUCOSE 136 mg/dl (70-220); POTASSIUM 4.5 mmol/L (3.5-5.1); SODIUM 140 mmol/L (135-144)
[2018-09-30] MEDS: INSULIN ASPART [NOVOLOG] 3 ML PEN SC ×4 (07:50→20:28)
[2018-09-30] MEDS: ONDANSETRON 4 MG INJ IV (08:48)
[2018-09-30] MEDS: INSULIN ASP PROT/ASPART (70/30) PEN SC ×2 (08:50→20:32)
[2018-09-30] MEDS: ATENOLOL 50 MG TAB PO (08:51)
[2018-09-30] MEDS: AMLODIPINE 10 MG TAB PO (08:52)
[2018-09-30] MEDS: CIPROFLOXACIN 400MG/D5W 200 ML IVPB (08:52)
[2018-09-30] MEDS: MULTIVITAMINS 10 ML, THIAMINE 100 MG, FOLIC ACID 1 MG in SOD CHLORIDE 0.9% 1,000 ML IVPB (08:52)
[2018-09-30] MEDS: DOCUSATE SODIUM 100 MG CAP PO ×2 (08:52→20:25)
[2018-09-30] MEDS: morphine 10 MG INJ IV ×3 (09:19→17:50)
[2018-09-30] MEDS: SENNA TAB PO ×2 (10:59→20:25)
[2018-09-30] MEDS: ATORVASTATIN 10 MG TAB PO (20:25)
[2018-09-30] MEDS: HYDROCODONE/APAP (5/325) TAB PO (20:44)
[2018-10-01] MEDS: ACCU-CHEK XX (02:01)
[2018-10-01] MEDS: traZODone 50 MG TAB PO (02:01)
[2018-10-01 05:18] LABS: ADD MAN DIFF? NO
[2018-10-01 05:21] LABS: BASOPHIL # 0.1 10^3/ul (0.0-0.1); BASOPHILS % 0.7 % (0.0-2.0); EOSINOPHILS # 0.3 10^3/ul (0.0-0.5); EOSINOPHILS % 3.4 % (0.0-7.0); HEMATOCRIT 46.4 % (42.0-52.0); HEMOGLOBIN 15.4 g/dl (14.0-18.0); LYMPHOCYTES # 3.3 10^3/ul (0.8-2.9); LYMPHOCYTES % 33.6 % (15.0-51.0); MEAN CORPUSCULAR HGB CONC 33.2 g/dl (32.0-37.0); MEAN CORPUSCULAR VOLUME 90.4 fl (82.0-101.0); MEAN PLATELET VOLUME 10.1 fl (7.4-10.4); MONOCYTE # 1.4 10^3/ul (0.3-0.9); MONOCYTES % 14.3 % (0.0-11.0); NEUTROPHIL # 4.7 10^3/ul (1.6-7.5); NEUTROPHILS % 47.4 % (39.0-77.0); PLATELET COUNT 327 10^3/UL (140-415); RED BLOOD COUNT 5.13 10^6/ul (4.70-6.10); RED CELL DISTRIBUTION WIDTH 12.7 % (11.5-14.5)
[2018-10-01 05:21] LABS: WHITE BLOOD COUNT 9.9 10^3/ul (4.8-10.8)
[2018-10-01 05:51] LABS: ANION GAP 11 (5-13); BLOOD UREA NITROGEN 19 mg/dl (7-20); CARBON DIOXIDE 30 mmol/L (21-31); CHLORIDE 99 mmol/L (97-110); CREATININE 1.11 mg/dl (0.61-1.24); Estimated GFR > 60 mL/min (>60); GLUCOSE 170 mg/dl (70-220); POTASSIUM 4.7 mmol/L (3.5-5.1); SODIUM 140 mmol/L (135-144)
[2018-10-01] MEDS: LEVOFLOXACIN 750 MG TABLET PO (06:08)
[2018-10-01] MEDS: PANTOPRAZOLE 40 MG INJ IV (06:08)
[2018-10-01] MEDS: DOCUSATE SODIUM 100 MG CAP PO (09:23)
[2018-10-01] MEDS: SENNA TAB PO (09:23)
[2018-10-01] MEDS: AMLODIPINE 10 MG TAB PO (09:25)
[2018-10-01] MEDS: ATENOLOL 50 MG TAB PO (09:25)
[2018-10-01] MEDS: INSULIN ASP PROT/ASPART (70/30) PEN SC (09:30)
[2018-10-01] MEDS: INSULIN ASPART [NOVOLOG] 3 ML PEN SC ×2 (09:31→13:03)
[2018-10-01] MEDS: morphine 10 MG INJ IV (09:41)
[2018-10-01] MEDS: HYDROCODONE/APAP (5/325) TAB PO (14:40)
== END 2018-10-01 16:00 | disposition home health service (06) | DRG 493 ==
LOC: SDS 11:58 → REC 15:57 → MS1 17:38
PROVIDERS: Orthopaedic Surgery
PROC: 0SPF04Z Removal of Internal Fixation Device from Right Ankle Joint, Open Approach (ICD-10-PCS; principal; 2018-09-26 13:29)
PROC: 0JDQ0ZZ Extraction of Right Foot Subcutaneous Tissue and Fascia, Open Approach (ICD-10-PCS; 2018-09-26 13:29)
DX: T84.223A Displacement of internal fixation device of bones of foot and toes, initial encounter (principal); T81.31XA Disruption of external operation (surgical) wound, not elsewhere classified, initial encounter; Y83.8 Other surgical procedures as the cause of abnormal reaction of the patient, or of later complication, without mention of misadventure at the time of the procedure; E78.00 Pure hypercholesterolemia, unspecified; E11.610 Type 2 diabetes mellitus with diabetic neuropathic arthropathy; I10 Essential (primary) hypertension; F10.10 Alcohol abuse, uncomplicated; Z98.1 Arthrodesis status; Z79.4 Long term (current) use of insulin
CPT/HCPCS: 71045; 73630; 80048; 82962; 83735; 84100; 85025; 87040; 87070; 87075; 87102; 87116; 97110; 97116; 97161; 97530